=== PATIENT | male | born 1970 | race African-American/Black ===

== ENCOUNTER 2023-11-09 11:30 | Emergency (ER) | payer OTHER ==
[2023-11-09] MEDS ORDERED: Ibuprofen 800 MG TAB ONE (12:29)
== END 2023-11-09 13:58 | disposition home or self-care (01) ==
LOC: ERS 11:30
DX: M54.50 Low back pain, unspecified (principal); M54.6 Pain in thoracic spine; F17.290 Nicotine dependence, other tobacco product, uncomplicated; V89.2XXA Person injured in unspecified motor-vehicle accident, traffic, initial encounter
CPT/HCPCS: 70450; 72125; 72128; 72131

== ENCOUNTER 2024-02-12 21:08 | Observation (INO) | payer OTHER ==
[2024-02-12 22:05] LABS: #Basophils 0.03 10x3/uL (0.0-0.2); %Basophils 0.8 % (0.0-1.0); %Eosinophils 3.6 % (0.0-10.0); %Lymphocytes 45.5 % (21.0-51.0); %Monocytes 8.7 % (0.0-10.0); %Neutrophils 41.1 % (42.0-75.0); Hematocrit 35.2 % (42.0-52.0); Hemoglobin 12.1 g/dL (14.0-18.0); Mean Corpuscular HGB CONC 34.4 g/dL (32.0-36.0); Mean Corpuscular Hemoglobin 31.9 pg (27.0-31.0); Mean Corpuscular Volume 92.9 fL (78.0-98.0); Platelet Count 235 10x3/uL (130-400); RBC Distribution Width 14.2 % (11.5-14.5); Red Blood Cell (RBC) Count 3.79 mill/uL (4.70-6.10)
[2024-02-12 22:22] LABS: ALT (SGPT) 11 U/L (8-55); AST (SGOT) 26 U/L (5-34); Alkaline Phosphatase 79 U/L (40-110); Anion Gap 14 mmol/L (10-20); BUN (Urea Nitrogen) 11 mg/dL (8.4-25.7); Bilirubin, Total 1.1 mg/dL (0.2-1.2); Calc. Creatinine Clearance 0 mL/min (70-130); Carbon Dioxide 24 mmol/L (22-29); Chloride 105 mmol/L (98-107); Estimated GFR 50; Globulin 3.3 g/dL (2.4-3.5); Glucose 122 mg/dL (70-105); Potassium 3.5 mmol/L (3.5-5.1); Protein, Total 7.3 g/dL (6.0-8.3); Sodium 139 mmol/L (136-145)
[2024-02-12 22:28] LABS: Troponin I 0.011 ng/mL (< 0.028)
[2024-02-13] MEDS ORDERED: Ondansetron PF 4 MG/2 ML Vial IVP PRN (00:30)
[2024-02-13] MEDS ORDERED: Acetaminophen 325 MG TAB PO PRN (00:30)
[2024-02-13] MEDS ORDERED: Ondansetron ODT 4 MG TAB SL PRN (00:30)
[2024-02-13 01:22] LABS: Hemoglobin A1c 5.3 % (4.0-6.0)
[2024-02-13 01:24] LABS: Cardiac Risk 4.6 (Less than 4.5)
[2024-02-13 01:29] LABS: Troponin I Less than 0.010 ng/mL (< 0.028)
[2024-02-13 02:51] VITALS: BMI 22.2
[2024-02-13 07:33] LABS: Troponin I Less than 0.010 ng/mL (< 0.028)
[2024-02-13] MEDS: Aspirin 81 mg Enteric Coated Tablet PO SCH (09:29)
[2024-02-14 10:48] LABS: #Basophils 0.03 10x3/uL (0.0-0.2); %Eosinophils 2.3 % (0.0-10.0); %Lymphocytes 46.5 % (21.0-51.0); %Neutrophils 40.9 % (42.0-75.0); Hematocrit 37.5 % (42.0-52.0); Hemoglobin 12.9 g/dL (14.0-18.0); Mean Corpuscular HGB CONC 34.4 g/dL (32.0-36.0); Mean Corpuscular Hemoglobin 31.5 pg (27.0-31.0); Mean Corpuscular Volume 91.5 fL (78.0-98.0); Mean Platelet Volume 9.1 fL (7.4-10.4); Platelet Count 239 10x3/uL (130-400); RBC Distribution Width 14.2 % (11.5-14.5)
[2024-02-14] MEDS: BIKTARVY PO SCH (11:09)
[2024-02-14 11:11] LABS: ALT (SGPT) 9 U/L (8-55); AST (SGOT) 20 U/L (5-34); Albumin 3.8 g/dL (3.5-5.0); Alkaline Phosphatase 73 U/L (40-110); Anion Gap 11 mmol/L (10-20); BUN (Urea Nitrogen) 11 mg/dL (8.4-25.7); Bilirubin, Total 1.3 mg/dL (0.2-1.2); Calc. Creatinine Clearance 74 mL/min (70-130); Carbon Dioxide 24 mmol/L (22-29); Chloride 108 mmol/L (98-107); Estimated GFR 65; Glucose 91 mg/dL (70-105); Potassium 4.2 mmol/L (3.5-5.1); Protein, Total 6.8 g/dL (6.0-8.3); Sodium 139 mmol/L (136-145)
[2024-02-14] MEDS ORDERED: predniSONE 20 MG TAB PO SCH (12:00)
[2024-02-14] MEDS ORDERED: valACYclovir 500 MG TAB PO SCH (15:00)
[2024-02-14 18:00] VITALS: BP 153/82; TEMP 98.1
[2024-02-15] MEDS ORDERED: predniSONE 20 MG TAB PO SCH (08:00)
[2024-02-15] MEDS ORDERED: BIKTARVY 50-200-25 MG TABLET PO SCH (09:00)
== END 2024-02-14 21:05 | disposition home or self-care (01) ==
LOC: ERS 21:08 → EEVIPCON 02-13 00:17 → 2NO 02-13 00:17
PROVIDERS: ADMIT Family Medicine; ATTEND Family Medicine
DX: R07.89 Other chest pain (principal); B20 Human immunodeficiency virus [HIV] disease
CPT/HCPCS: 36415; 36416; 71045; 80053; 80061; 83036; 83880; 84443; 84484; 85025; 93005; 93017; G0378

== ENCOUNTER 2024-09-05 11:44 | Emergency (ER) | payer OTHER ==
[2024-09-05 12:51] LABS: #Basophils Less than 0.03 10x3/uL (0.0-0.2); #Eosinophils Less than 0.03 10x3/uL (0.0-0.7); %Basophils 0.1 % (0.0-1.0); %Lymphocytes 13.2 % (21.0-51.0); Hematocrit 40.8 % (42.0-52.0); Mean Corpuscular HGB CONC 34.3 g/dL (32.0-36.0); Mean Corpuscular Hemoglobin 29.3 pg (27.0-31.0); Mean Corpuscular Volume 85.4 fL (78.0-98.0); Mean Platelet Volume 9.4 fL (7.4-10.4); Platelet Count 262 10x3/uL (130-400); RBC Distribution Width 13.3 % (11.5-14.5); Red Blood Cell (RBC) Count 4.78 mill/uL (4.70-6.10)
[2024-09-05 13:08] LABS: ALT (SGPT) 24 U/L (Less than 45); AST (SGOT) 57 U/L (11-34); Albumin 3.5 g/dL (3.1-4.5); Alkaline Phosphatase 80 U/L (40-110); Anion Gap 17 mmol/L (10-20); BUN (Urea Nitrogen) 35 mg/dL (8.4-25.7); Bilirubin, Total 1.3 mg/dL (0.3-1.2); Calc. Creatinine Clearance 0 mL/min (70-130); Calcium 9.4 mg/dL (7.8-10.44); Carbon Dioxide 20 mmol/L (22-29); Chloride 101 mmol/L (98-107); Estimated GFR 44; Globulin 5.4 g/dL (2.4-3.5); Glucose 137 mg/dL (70-105); Potassium 4.3 mmol/L (3.5-5.1); Protein, Total 8.9 g/dL (6.0-8.3); Sodium 134 mmol/L (136-145)
[2024-09-05] MEDS ORDERED: Ketorolac Tromethamine 30 MG (1 mL) VIAL ONE (14:08)
[2024-09-05] MEDS ORDERED: Ondansetron ODT 4 MG TAB ONE (14:08)
[2024-09-05] MEDS ORDERED: Benzonatate 100 MG CAP ONE ×2 (14:13→14:14)
[2024-09-05] MEDS ORDERED: Dexamethasone 10 MG/ML VIAL ONE (14:27)
== END 2024-09-05 15:00 | disposition home or self-care (01) ==
LOC: ERS 11:44
DX: B34.9 Viral infection, unspecified (principal); E86.0 Dehydration; F17.290 Nicotine dependence, other tobacco product, uncomplicated
CPT/HCPCS: 36415; 80053; 85025; 87428; 93005; 99283; J1100; J1885; Q0162